=== PATIENT | male | born 1985 | race Caucasian/White ===

== ENCOUNTER 2018-03-30 03:12 | Emergency (ER) | payer MEDICAID, OTHER ==
[2018-03-30] MEDS: IBUPROFEN 600 MG TAB PO (03:37)
[2018-03-30] MEDS: CEFAZOLIN 1 GM INJ IM (03:38)
== END 2018-03-30 04:00 | disposition home or self-care (01) ==
LOC: FTE 03:12
DX: S61.411A Laceration without foreign body of right hand, initial encounter (principal); L08.9 Local infection of the skin and subcutaneous tissue, unspecified; F17.210 Nicotine dependence, cigarettes, uncomplicated; W26.0XXA Contact with knife, initial encounter; Y92.9 Unspecified place or not applicable
CPT/HCPCS: 96372; 99284-25; J0690

== ENCOUNTER 2018-04-02 12:28 | Emergency (ER) | payer MEDICAID ==
[2018-04-02] MEDS: DIPHTH/TET/ACEL PERTUSS (ADULT) 0.5 ML VIAL IM* (14:26)
== END 2018-04-02 14:30 | disposition home or self-care (01) ==
LOC: FTE 12:28
DX: S61.412A Laceration without foreign body of left hand, initial encounter (principal); L08.9 Local infection of the skin and subcutaneous tissue, unspecified; F17.210 Nicotine dependence, cigarettes, uncomplicated; X58.XXXA Exposure to other specified factors, initial encounter; Y92.9 Unspecified place or not applicable; Z04.3 Encounter for examination and observation following other accident; Z23 Encounter for immunization
CPT/HCPCS: 90471; 90715; 99283-25